=== PATIENT | female | born 1955 | race Caucasian/White ===

== ENCOUNTER 2022-04-03 14:34 | Inpatient (IN) | payer OTHER ==
[~2022-04-03] VITALS: Ht 170.2 cm; Wt 58.7 kg
[2022-04-03] MEDS ORDERED: TETANUS-DIPTH-ACEL PERTUSSIS 0.5ML SYR Tdap IM ONE (14:45)
[2022-04-03 15:42] LABS: Basophils # (auto) 0 10 ^3/uL (0-0.2); Basophils % (auto) 0.1 % (0.0-2.0); Eosinophils # (auto) 0 10 ^3/uL (0-0.8); Eosinophils % (auto) 0.1 % (0.0-7.0); Hematocrit 38.1 % (36.0-46.0); Hemoglobin 13.1 g/dL (12.2-16.2); Lymphocytes % (auto) 5.4 % (10.0-50.0); Mean Corpuscular Hemoglobin 32.2 pg (28.0-32.0); Mean Corpuscular Hgb Conc. 34.4 g/dL (32.0-36.0); Mean Corpuscular Volume 93.7 fL (80.0-100.0); Monocytes # (auto) 2.2 10 ^3/uL (0-1.3); Monocytes % (auto) 12.2 % (0.0-12.0); Neutrophils # (auto) 14.8 10 ^3/uL (1.6-8.6); Neutrophils % (auto) 82.2 % (37.0-80.0); Nucleated Red Blood Cells % 0.1 %; Red Blood Cells 4.06 10^6/uL (4.0-5.20); Red Cell Distribution Width 14.1 % (11.8-14.3)
[2022-04-03 15:50] LABS: Albumin 2.9 g/dL (3.4-5.0); Anion Gap 10 (5-15); Blood Urea Nitrogen 20 mg/dL (7-18); Calcium 9.3 mg/dL (8.5-10.1); Carbon Dioxide 25 mmol/L (21-32); Chloride 99 mmol/L (98-107); Glucose 112 mg/dL (74-106); Magnesium 2.2 mg/dL (1.6-2.6); Sodium 134 mmol/L (136-145)
[2022-04-03 15:58] LABS: Alanine Aminotransferase 17 U/L (13-56); Alkaline Phosphatase 115 U/L (45-117); Aspartate Aminotransferase 20 U/L (15-37); BUN/Creatinine Ratio 20.6; Bilirubin, Total 0.3 mg/dL (0.2-1.0); CRP High Sensitivity > 19.0 mg/dL (< 0.3); GFR African American 74 mL/min; GFR Non-African American 61 mL/min; INR 0.9 (0.9-1.15)
[2022-04-03 16:01] LABS: Potassium 2.9 mmol/L (3.5-5.1)
[2022-04-03] MEDS ORDERED: POTASSIUM EFFERVESENT TAB 25 MEQ GT ONE (16:15)
[2022-04-03 20:20] LABS: Urine Bacteria NONE SEEN /hpf (None Seen); Urine Blood Negative /uL (Negative); Urine WBC 22 /hpf (0 - 5)
[2022-04-03] MEDS ORDERED: ONDANSETRON HCL 4 MG/2 ML VIAL IV PRN (21:15)
[2022-04-03] MEDS ORDERED: cefTRIAXone 1GM/50ML D5W 50 ML IV ONE (21:15)
[2022-04-03] MEDS ORDERED: ACETAMINOPHEN 325 MG TAB PO PRN (21:15)
[2022-04-03] MEDS ORDERED: HYDROcodone-ACET 10/325MG TAB PO ONE (21:15)
[2022-04-03] MEDS ORDERED: DOCUSATE SOD 100 MG CAP PO PRN (21:15)
[2022-04-03] MEDS ORDERED: RIZA10TA22 OR (21:20)
[2022-04-03] MEDS ORDERED: SUMA100T15 PO (21:20)
[2022-04-03] MEDS ORDERED: PAR20T PO (21:20)
[2022-04-03] MEDS ORDERED: HYDR-4072 PO (21:20)
[2022-04-03] MEDS ORDERED: PANT40TA2 PO (21:20)
[2022-04-03] MEDS ORDERED: BUPR-160 PO (21:20)
[2022-04-03] MEDS ORDERED: PROP60CA34 PO (21:20)
[2022-04-03] MEDS ORDERED: ATOR40TA52 PO (21:20)
[2022-04-03] MEDS ORDERED: ONDA-144 PO (21:20)
[2022-04-03] MEDS ORDERED: MIRA50TA OR (21:20)
[2022-04-03] MEDS: FAMOTIDINE (10MG/ML) 2ML VL IV SCH (22:36)
[2022-04-03] MEDS: SODIUM CHLORIDE 0.9% 1,000 ML IV SCH (22:36)
[2022-04-03] MEDS ORDERED: NITROGLYCERIN 0.4 MG SL TAB SL PRN (23:00)
[2022-04-03] MEDS ORDERED: MORPHINE SULFATE INJ 2 MG/ml SYRG IV PRN (23:00)
[2022-04-04] MEDS: HYDROcodone-ACET 5/325MG TAB PO PRN ×2 (02:59→20:53)
[2022-04-04 06:50] LABS: Basophils # (auto) 0 10 ^3/uL (0-0.2); Basophils % (auto) 0.1 % (0.0-2.0); Eosinophils # (auto) 0 10 ^3/uL (0-0.8); Eosinophils % (auto) 0.2 % (0.0-7.0); Hemoglobin 11.9 g/dL (12.2-16.2); Lymphocytes # (auto) 1.2 10 ^3/uL (0.4-5.4); Lymphocytes % (auto) 8.8 % (10.0-50.0); Mean Corpuscular Hemoglobin 32.3 pg (28.0-32.0); Mean Corpuscular Hgb Conc. 34.1 g/dL (32.0-36.0); Mean Corpuscular Volume 94.5 fL (80.0-100.0); Monocytes # (auto) 1.9 10 ^3/uL (0-1.3); Monocytes % (auto) 14.7 % (0.0-12.0); Neutrophils % (auto) 76.2 % (37.0-80.0); Red Cell Distribution Width 14.1 % (11.8-14.3); White Blood Cell 13.1 10^3/uL (4.4-10.8)
[2022-04-04 07:28] LABS: Albumin 2.6 g/dL (3.4-5.0); BUN/Creatinine Ratio 19.6; Bilirubin, Total 0.4 mg/dL (0.2-1.0); Calcium 9.5 mg/dL (8.5-10.1); Total Protein 7.4 g/dL (6.4-8.2)
[2022-04-04 07:38] LABS: Potassium 2.8 mmol/L (3.5-5.1)
[2022-04-04] MEDS ORDERED: POTASSIUM CHL 20 Meq TABLET PO ONE (07:45)
[2022-04-04] MEDS ORDERED: POTASSIUM CHL 20MEQ/100ML 200 ML IV ONE (07:45)
[2022-04-04] MEDS: cefTRIAXone 1GM/50ML D5W 50 ML IV SCH (10:34)
[2022-04-04] MEDS: FAMOTIDINE (10MG/ML) 2ML VL IV SCH ×2 (10:34→20:52)
[2022-04-04] MEDS ORDERED: LISINOPRIL 20 MG TAB PO ONE (14:45)
[2022-04-04] MEDS: SODIUM CHLORIDE 0.9% 1,000 ML IV SCH (14:46)
[2022-04-04] MEDS ORDERED: hydrALAZINE HCL 20 MG/ML VL IV PRN (17:15)
[2022-04-04 17:33] VITALS: BP 131/87
[2022-04-04] MEDS: ATORVASTATIN 20 MG TAB PO SCH (20:52)
[2022-04-04] MEDS: METOPROLOL TARTRATE 25 MG TAB PO SCH (20:53)
[2022-04-04 21:58] VITALS: BP 133/87
[2022-04-04] MEDS ORDERED: buPROPion HCL 100 MG TAB PO SCH (22:00)
[2022-04-05 04:58] VITALS: BP 147/82
[2022-04-05] MEDS: SODIUM CHLORIDE 0.9% 1,000 ML IV SCH ×3 (06:12→09:20)
[2022-04-05] MEDS: SUMAtriptan SUCCINATE 25 MG TAB PO PRN (06:22)
[2022-04-05 09:00] VITALS: BP 152/95
[2022-04-05] MEDS: cefTRIAXone 1GM/50ML D5W 50 ML IV SCH (09:16)
[2022-04-05] MEDS: PANTOPRAZOLE 40 MG TAB PO SCH (09:16)
[2022-04-05] MEDS: METOPROLOL TARTRATE 25 MG TAB PO SCH ×2 (09:17→20:35)
[2022-04-05] MEDS: PARoxetine 20 MG TAB PO SCH (09:17)
[2022-04-05] MEDS: LISINOPRIL 20 MG TAB PO SCH (09:18)
[2022-04-05] MEDS: FAMOTIDINE (10MG/ML) 2ML VL IV SCH ×2 (09:19→20:36)
[2022-04-05 12:13] LABS: BUN/Creatinine Ratio 16.2; Calcium 8.9 mg/dL (8.5-10.1); Magnesium 2.3 mg/dL (1.6-2.6)
[2022-04-05 12:50] LABS: Potassium 2.9 mmol/L (3.5-5.1)
[2022-04-05 13:00] VITALS: BP 141/91
[2022-04-05] MEDS: POTASSIUM CHL 20 Meq TABLET PO SCH ×2 (13:19→17:44)
[2022-04-05 16:47] VITALS: BP 152/86
[2022-04-05] MEDS: HYDROcodone-ACET 5/325MG TAB PO PRN (20:34)
[2022-04-05] MEDS: ATORVASTATIN 20 MG TAB PO SCH (20:36)
[2022-04-05 20:50] VITALS: BP 153/97
[2022-04-05] MEDS ORDERED: LORazepam 2MG/ML-1ML VIAL IV PRN (23:15)
[2022-04-06] MEDS: SODIUM CHLORIDE 0.9% 1,000 ML IV SCH ×3 (00:54→21:44)
[2022-04-06 05:01] VITALS: BP 146/73
[2022-04-06] MEDS: METOCLOPRAMIDE HCL 10 MG TAB PO SCH ×3 (05:44→21:45)
[2022-04-06 06:18] LABS: Albumin 2.4 g/dL (3.4-5.0); Calcium 8.8 mg/dL (8.5-10.1)
[2022-04-06 06:19] LABS: BUN/Creatinine Ratio 14.9
[2022-04-06 06:22] LABS: Bilirubin, Total 0.4 mg/dL (0.2-1.0); Total Protein 6.7 g/dL (6.4-8.2)
[2022-04-06 08:10] LABS: Folate (Folic Acid) 4.72 ng/mL (5.38-24)
[2022-04-06 08:30] VITALS: BP 153/85
[2022-04-06] MEDS: PARoxetine 20 MG TAB PO SCH (09:33)
[2022-04-06] MEDS: PANTOPRAZOLE 40 MG TAB PO SCH (09:33)
[2022-04-06] MEDS: LISINOPRIL 20 MG TAB PO SCH (09:34)
[2022-04-06] MEDS: cefTRIAXone 1GM/50ML D5W 50 ML IV SCH (09:35)
[2022-04-06] MEDS: FAMOTIDINE (10MG/ML) 2ML VL IV SCH ×2 (09:35→21:44)
[2022-04-06] MEDS: METOPROLOL TARTRATE 25 MG TAB PO SCH ×2 (09:35→21:45)
[2022-04-06] MEDS: DexAMETHasone INJECTION 10 MG in D5W 5% 50 ML IV SCH (10:36)
[2022-04-06 12:30] VITALS: BP 148/90
[2022-04-06] MEDS ORDERED: LOPERAMIDE HCL 2 MG CAP/TAB PO PRN (15:15)
[2022-04-06 17:00] VITALS: BP 154/95
[2022-04-06] MEDS: buPROPion HCL 75 MG TAB PO SCH ×2 (18:26→21:44)
[2022-04-06] MEDS: SUMAtriptan SUCCINATE 25 MG TAB PO PRN (19:59)
[2022-04-06] MEDS: ATORVASTATIN 20 MG TAB PO SCH (21:45)
[2022-04-06 22:00] VITALS: BP 156/97
[2022-04-07 05:00] VITALS: BP_SYST 156; BP_DIAS 89; BP_DIAS 90
[2022-04-07] MEDS: METOCLOPRAMIDE HCL 10 MG TAB PO SCH ×3 (05:32→21:12)
[2022-04-07 09:15] VITALS: BP 148/90
[2022-04-07] MEDS: FAMOTIDINE (10MG/ML) 2ML VL IV SCH ×2 (09:29→21:13)
[2022-04-07] MEDS: PARoxetine 20 MG TAB PO SCH (09:29)
[2022-04-07] MEDS: PANTOPRAZOLE 40 MG TAB PO SCH (09:29)
[2022-04-07] MEDS: DexAMETHasone INJECTION 10 MG in D5W 5% 50 ML IV SCH (09:29)
[2022-04-07] MEDS: METOPROLOL TARTRATE 25 MG TAB PO SCH ×2 (09:30→21:12)
[2022-04-07] MEDS: buPROPion HCL 75 MG TAB PO SCH ×2 (09:30→21:13)
[2022-04-07] MEDS: LISINOPRIL 20 MG TAB PO SCH (09:30)
[2022-04-07] MEDS: cefTRIAXone 1GM/50ML D5W 50 ML IV SCH (10:18)
[2022-04-07] MEDS: SODIUM CHLORIDE 0.9% 1,000 ML IV SCH ×3 (10:18→22:30)
[2022-04-07] MEDS: HYDROcodone-ACET 5/325MG TAB PO PRN ×2 (12:18→17:13)
[2022-04-07 12:43] VITALS: BP 144/88
[2022-04-07 16:37] VITALS: BP 144/87
[2022-04-07] MEDS: SUMAtriptan SUCCINATE 25 MG TAB PO PRN (21:11)
[2022-04-07] MEDS: ATORVASTATIN 20 MG TAB PO SCH (21:12)
[2022-04-07] MEDS: AMITRIPTYLINE HCL 25 MG TAB PO SCH (21:12)
[2022-04-07 22:24] VITALS: BP 137/79
[2022-04-08 05:00] VITALS: BP 148/80
[2022-04-08] MEDS: METOCLOPRAMIDE HCL 10 MG TAB PO SCH ×3 (05:23→21:21)
[2022-04-08 08:35] VITALS: BP 144/79
[2022-04-08] MEDS ORDERED: MET25T PO (09:11)
[2022-04-08] MEDS ORDERED: METO-517 PO (09:11)
[2022-04-08] MEDS ORDERED: CEPH-322 PO (09:11)
[2022-04-08] MEDS ORDERED: BUPR75TA10 PO (09:11)
[2022-04-08] MEDS ORDERED: AMIT1TAB35 PO (09:11)
[2022-04-08] MEDS: METOPROLOL TARTRATE 25 MG TAB PO SCH ×2 (09:14→21:22)
[2022-04-08] MEDS: PARoxetine 20 MG TAB PO SCH (09:14)
[2022-04-08] MEDS: PANTOPRAZOLE 40 MG TAB PO SCH (09:14)
[2022-04-08] MEDS: buPROPion HCL 75 MG TAB PO SCH ×2 (09:14→21:20)
[2022-04-08] MEDS: LISINOPRIL 20 MG TAB PO SCH (09:15)
[2022-04-08] MEDS: FAMOTIDINE (10MG/ML) 2ML VL IV SCH ×2 (09:15→21:19)
[2022-04-08] MEDS: FOLIC ACID 1 MG in D5W 5% 50 ML INJ SCH (09:17)
[2022-04-08] MEDS ORDERED: FOLI1TAB6 PO (09:17)
[2022-04-08] MEDS: DexAMETHasone INJECTION 10 MG in D5W 5% 50 ML IV SCH (10:27)
[2022-04-08] MEDS: cefTRIAXone 1GM/50ML D5W 50 ML IV SCH (10:58)
[2022-04-08] MEDS: SODIUM CHLORIDE 0.9% 1,000 ML IV SCH ×2 (11:15→21:34)
[2022-04-08] MEDS: HYDROcodone-ACET 5/325MG TAB PO PRN ×3 (12:08→22:40)
[2022-04-08 12:39] VITALS: BP 144/89
[2022-04-08 17:13] VITALS: BP 137/76
[2022-04-08] MEDS: ATORVASTATIN 20 MG TAB PO SCH (21:21)
[2022-04-08] MEDS: AMITRIPTYLINE HCL 25 MG TAB PO SCH (21:22)
[2022-04-08 22:00] VITALS: BP 143/79
[2022-04-09 05:00] VITALS: BP 147/79
[2022-04-09] MEDS: METOCLOPRAMIDE HCL 10 MG TAB PO SCH ×2 (06:15→13:21)
[2022-04-09] MEDS: SODIUM CHLORIDE 0.9% 1,000 ML IV SCH (07:15)
[2022-04-09 08:37] VITALS: BP 150/95
[2022-04-09] MEDS: FOLIC ACID 1 MG in D5W 5% 50 ML INJ SCH (10:00)
[2022-04-09] MEDS: buPROPion HCL 75 MG TAB PO SCH (10:19)
[2022-04-09] MEDS: PANTOPRAZOLE 40 MG TAB PO SCH (10:19)
[2022-04-09] MEDS: cefTRIAXone 1GM/50ML D5W 50 ML IV SCH (10:19)
[2022-04-09] MEDS: METOPROLOL TARTRATE 25 MG TAB PO SCH (10:20)
[2022-04-09] MEDS: PARoxetine 20 MG TAB PO SCH (10:20)
[2022-04-09] MEDS: LISINOPRIL 20 MG TAB PO SCH (10:21)
[2022-04-09] MEDS: FAMOTIDINE (10MG/ML) 2ML VL IV SCH (10:23)
[2022-04-09] MEDS: DexAMETHasone INJECTION 10 MG in D5W 5% 50 ML IV SCH (11:12)
[2022-04-09 13:09] VITALS: BP 160/91
== END 2022-04-09 16:54 | disposition home health service (06) | DRG 689 ==
LOC: ER 14:36 → TELE 22:48 → TELE-E-ADS 04-04 12:38 → TELE-EAST 04-04 18:23
PROVIDERS: ADMIT Nurse Practitioner Family; ATTEND Nurse Practitioner
DX: N30.00 Acute cystitis without hematuria (principal); G93.41 Metabolic encephalopathy; E87.1 Hypo-osmolality and hyponatremia; E44.0 Moderate protein-calorie malnutrition; E87.6 Hypokalemia; E88.09 Other disorders of plasma-protein metabolism, not elsewhere classified; F29 Unspecified psychosis not due to a substance or known physiological condition; F17.200 Nicotine dependence, unspecified, uncomplicated; I10 Essential (primary) hypertension; Z20.822 Contact with and (suspected) exposure to COVID-19; G43.909 Migraine, unspecified, not intractable, without status migrainosus; G44.40 Drug-induced headache, not elsewhere classified, not intractable; E53.8 Deficiency of other specified B group vitamins; Z68.20 Body mass index [BMI] 20.0-20.9, adult; Z82.0 Family history of epilepsy and other diseases of the nervous system; Z79.899 Other long term (current) drug therapy; Z83.3 Family history of diabetes mellitus; Z82.49 Family history of ischemic heart disease and other diseases of the circulatory system; Z86.19 Personal history of other infectious and parasitic diseases
CPT/HCPCS: 36415; 70450; 70551; 71045; 80048; 80053; 81001; 82607; 82746; 83735; 84443; 84484; 85025; 85610; 86141; 87086; 87426; 93005; 95819; 96365; 96366; 96367; G0378; J0696; J1100; J3480; J3490; J7060

== ENCOUNTER → 2022-06-24 | Outpatient (CLI) | payer OTHER ==
[~2022-06-24] MED LIST: AMIT1TAB35 PO; ATOR40TA52 PO; BUPR75TA10 PO; CEPH-322 PO; FOLI1TAB6 PO; HYDR-4072 PO; MET25T PO; METO-517 PO; MIRA50TA OR; ONDA-144 PO; PANT40TA2 PO; PAR20T PO; PROP60CA34 PO; RIZA10TA22 OR; SUMA100T15 PO
[2022-06-24 08:59] LABS: Urine Bacteria NONE SEEN /hpf (None Seen); Urine Blood Negative /uL (Negative); Urine Specific Gravity 1.021 (1.001-1.035); Urine WBC <1 /hpf (0 - 5)
[2022-06-24 09:11] LABS: Basophils # (auto) 0.1 10 ^3/uL (0-0.2); Basophils % (auto) 0.8 % (0.0-2.0); Eosinophils # (auto) 0.4 10 ^3/uL (0-0.8); Eosinophils % (auto) 5.2 % (0.0-7.0); Hematocrit 41.3 % (36.0-46.0); Hemoglobin 13.8 g/dL (12.2-16.2); Lymphocytes # (auto) 2.8 10 ^3/uL (0.4-5.4); Lymphocytes % (auto) 40.9 % (10.0-50.0); Mean Corpuscular Hemoglobin 31.4 pg (28.0-32.0); Mean Corpuscular Hgb Conc. 33.4 g/dL (32.0-36.0); Mean Corpuscular Volume 93.8 fL (80.0-100.0); Monocytes # (auto) 0.5 10 ^3/uL (0-1.3); Monocytes % (auto) 7.9 % (0.0-12.0); Neutrophils # (auto) 3.1 10 ^3/uL (1.6-8.6); Neutrophils % (auto) 45.2 % (37.0-80.0); Nucleated Red Blood Cells % 0.1 %; Red Cell Distribution Width 13.1 % (11.8-14.3); White Blood Cell 6.9 10^3/uL (4.4-10.8)
[2022-06-24 09:33] LABS: Calcium 9.8 mg/dL (8.5-10.1); Magnesium 2.1 mg/dL (1.6-2.6); Potassium 4.7 mmol/L (3.5-5.1); Uric Acid 3.3 mg/dL (2.6-6.0)
[2022-06-24 09:40] LABS: Albumin 3.9 g/dL (3.4-5.0); BUN/Creatinine Ratio 21.5 (10.0-20.0); Bilirubin, Total 0.2 mg/dL (0.2-1.0); Total Protein 7.8 g/dL (6.4-8.2)
== END | disposition home or self-care (01) ==
LOC: LAB 08:20
PROVIDERS: ATTEND Internal Medicine
DX: R79.89 Other specified abnormal findings of blood chemistry (principal); E78.41 Elevated Lipoprotein(a); R68.89 Other general symptoms and signs; R73.09 Other abnormal glucose; E61.2 Magnesium deficiency; R94.6 Abnormal results of thyroid function studies; R82.991 Hypocitraturia; E55.9 Vitamin D deficiency, unspecified; R82.79 Other abnormal findings on microbiological examination of urine; D51.9 Vitamin B12 deficiency anemia, unspecified; R82.90 Unspecified abnormal findings in urine
CPT/HCPCS: 36415; 80053; 80061; 81001; 82306; 82607; 83036; 83735; 84443; 84550; 85025; 87086

== ENCOUNTER 2022-10-11 09:05 | Inpatient (IN) | payer OTHER ==
[~2022-10-11] VITALS: Ht 170.2 cm; Wt 65.3 kg
[~2022-10-11 09:05] MED LIST changes: +AMIT-118 PO; -AMIT1TAB35 PO; -BUPR75TA10 PO; +BUPR75TA96 PO; -CEPH-322 PO; +CEPH250C PO; +FOLI-119 PO; -FOLI1TAB6 PO
[2022-10-11 09:42] LABS: Basophils # (auto) 0.1 10 ^3/uL (0-0.2); Basophils % (auto) 0.8 % (0.0-2.0); Eosinophils # (auto) 0.2 10 ^3/uL (0-0.8); Eosinophils % (auto) 1.4 % (0.0-7.0); Hematocrit 39.8 % (36.0-46.0); Hemoglobin 13.4 g/dL (12.2-16.2); Lymphocytes # (auto) 2.1 10 ^3/uL (0.4-5.4); Lymphocytes % (auto) 14.8 % (10.0-50.0); Mean Corpuscular Hemoglobin 31.9 pg (28.0-32.0); Mean Corpuscular Hgb Conc. 33.7 g/dL (32.0-36.0); Mean Corpuscular Volume 94.7 fL (80.0-100.0); Monocytes # (auto) 1.4 10 ^3/uL (0-1.3); Monocytes % (auto) 9.9 % (0.0-12.0); Neutrophils # (auto) 10.4 10 ^3/uL (1.6-8.6); Neutrophils % (auto) 73.1 % (37.0-80.0); Red Blood Cells 4.21 10^6/uL (4.0-5.20); Red Cell Distribution Width 13.7 % (11.8-14.3); White Blood Cell 14.3 10^3/uL (4.4-10.8)
[2022-10-11 11:07] LABS: Albumin 3.4 g/dL (3.4-5.0); BUN/Creatinine Ratio 15.4 (10.0-20.0); Calcium 9.7 mg/dL (8.5-10.1)
[2022-10-11 11:17] LABS: Bilirubin, Total 0.4 mg/dL (0.2-1.0); Total Protein 7.9 g/dL (6.4-8.2)
[2022-10-11] MEDS ORDERED: SODIUM CHLORIDE 0.9% 1,000 ML IV ONE (12:15)
[2022-10-11 12:35] LABS: Urine Bacteria NONE SEEN /hpf (None Seen); Urine Blood Negative /uL (Negative); Urine Clarity Clear (Clear); Urine Color Yellow (Yellow); Urine Hyaline Cast MANY /lpf (0 - 2); Urine Mucus FEW (None Seen); Urine Protein, UAD 1+ (Negative); Urine Specific Gravity 1.035 (1.001-1.035); Urine Urobilinogen Normal (Negative); Urine WBC 1 /hpf (0 - 5)
[2022-10-11 12:51] LABS: Magnesium 2.4 mg/dL (1.6-2.6)
[2022-10-11 13:38] LABS: INR 0.93 (0.9-1.15); Partial Thromboplastin Time 29.6 SEC (24.5-34.5); Prothrombin Time 9.8 sec (9.3-11.8)
[2022-10-11] MEDS ORDERED: IOHEXOL 300 MG/ML 100ML BOTTLE IJ ONE (14:23)
[2022-10-11] MEDS ORDERED: FLEET ENEMA(ADULT) 135 ML PR ONE (17:30)
[2022-10-11] MEDS ORDERED: SENNA 8.6 MG TAB PO ONE (17:30)
[2022-10-11] MEDS ORDERED: FLEET ENEMA(ADULT) 135 ML PR PRN (18:15)
[2022-10-11] MEDS ORDERED: DOCUSATE SOD 100 MG CAP PO ONE (18:15)
[2022-10-11] MEDS ORDERED: BISACODYL 5 MG EC TAB PO PRN (18:15)
[2022-10-11] MEDS ORDERED: ONDANSETRON HCL 4 MG/2 ML VIAL IV PRN (18:15)
[2022-10-11] MEDS ORDERED: HYDROcodone-ACET 5/325MG TAB PO PRN (18:15)
[2022-10-11] MEDS ORDERED: DOCUSATE SOD 100 MG CAP PO PRN ×2 (18:15)
[2022-10-11 19:23] VITALS: PULSE 78; RESP 18; O2SAT 94
[2022-10-11] MEDS ORDERED: MORPHINE SULFATE INJ 2 MG/ml SYRG IV ONE (19:45)
[2022-10-11] MEDS ORDERED: hydrALAZINE HCL 20 MG/ML VL IV PRN (19:45)
[2022-10-11] MEDS: cefTRIAXone 1GM/50ML D5W 50 ML IV SCH (19:50)
[2022-10-11] MEDS: POLYETHYLENE GLYCOL 17 GM PWDR PO SCH (19:51)
[2022-10-11] MEDS: metroNIDAZOLE 500MG/100ML 100 ML IV SCH (19:57)
[2022-10-11] MEDS: buPROPion HCL 75 MG TAB PO SCH (20:47)
[2022-10-11] MEDS: METOCLOPRAMIDE HCL 10 MG TAB PO SCH (20:47)
[2022-10-11] MEDS: AMITRIPTYLINE HCL 25 MG TAB PO SCH (20:47)
[2022-10-11] MEDS: SODIUM CHLOR 0.9% PF (SALINE LOCK) 10ML VIAL/SYR IV SCH (21:00)
[2022-10-11] MEDS: PROPRANOLOL HCL 20 MG TAB PO SCH (22:19)
[2022-10-11 23:30] VITALS: PULSE 103; RESP 18; O2SAT 99
[2022-10-12] MEDS: metroNIDAZOLE 500MG/100ML 100 ML IV SCH ×2 (03:14→10:22)
[2022-10-12] MEDS: SODIUM CHLOR 0.9% PF (SALINE LOCK) 10ML VIAL/SYR IV SCH ×3 (05:51→21:29)
[2022-10-12] MEDS: METOCLOPRAMIDE HCL 10 MG TAB PO SCH ×2 (05:51→13:24)
[2022-10-12 07:25] VITALS: PULSE 98; RESP 15; O2SAT 98
[2022-10-12] MEDS: cefTRIAXone 1GM/50ML D5W 50 ML IV SCH (09:20)
[2022-10-12] MEDS: FOLIC ACID 1 MG TAB PO SCH (09:47)
[2022-10-12] MEDS: PROPRANOLOL HCL 20 MG TAB PO SCH ×2 (09:48→21:28)
[2022-10-12] MEDS: PARoxetine 20 MG TAB PO SCH (09:48)
[2022-10-12] MEDS: ATORVASTATIN 20 MG TAB PO SCH (09:48)
[2022-10-12] MEDS: POLYETHYLENE GLYCOL 17 GM PWDR PO SCH (09:48)
[2022-10-12] MEDS: PANTOPRAZOLE 40 MG TAB PO SCH (09:49)
[2022-10-12] MEDS: buPROPion HCL 75 MG TAB PO SCH ×2 (09:49→21:29)
[2022-10-12] MEDS ORDERED: ENOXAPARIN SOD 40 MG/0.4 ML SYRINGE SC SCH (10:00)
[2022-10-12] MEDS ORDERED: PARoxetine 20 MG TAB PO SCH (10:00)
[2022-10-12] MEDS ORDERED: CHOL20007 PO (12:55)
[2022-10-12] MEDS ORDERED: OXYB2.5T PO (12:55)
[2022-10-12 13:00] VITALS: BP 136/79; PULSE 81; RESP 18; TEMP 98; O2SAT 97
[2022-10-12 17:00] VITALS: BP 133/85; PULSE 87; RESP 19; TEMP 98.2; O2SAT 98
[2022-10-12] MEDS: LACTULOSE 20Gm/30ML SOLN PO SCH ×2 (18:15→22:00)
[2022-10-12] MEDS: DOCUSATE SOD 100 MG CAP PO SCH (21:29)
[2022-10-12] MEDS: AMITRIPTYLINE HCL 25 MG TAB PO SCH (21:29)
[2022-10-12 22:00] VITALS: BP 169/94; PULSE 90; RESP 14; TEMP 98.1; O2SAT 92
[2022-10-13] MEDS: LACTULOSE 20Gm/30ML SOLN PO SCH ×6 (02:00→21:19)
[2022-10-13 05:00] VITALS: BP 174/96; PULSE 85; RESP 14; TEMP 98.3; O2SAT 93
[2022-10-13] MEDS: SODIUM CHLOR 0.9% PF (SALINE LOCK) 10ML VIAL/SYR IV SCH ×3 (05:42→21:17)
[2022-10-13 06:34] LABS: Basophils # (auto) 0 10 ^3/uL (0-0.2); Basophils % (auto) 0.1 % (0.0-2.0); Eosinophils # (auto) 0.1 10 ^3/uL (0-0.8); Eosinophils % (auto) 0.4 % (0.0-7.0); Hematocrit 36.3 % (36.0-46.0); Hemoglobin 12.2 g/dL (12.2-16.2); Lymphocytes # (auto) 1.5 10 ^3/uL (0.4-5.4); Lymphocytes % (auto) 10.2 % (10.0-50.0); Mean Corpuscular Hemoglobin 31.7 pg (28.0-32.0); Mean Corpuscular Hgb Conc. 33.6 g/dL (32.0-36.0); Mean Corpuscular Volume 94.4 fL (80.0-100.0); Monocytes % (auto) 13.8 % (0.0-12.0); Neutrophils # (auto) 11.2 10 ^3/uL (1.6-8.6); Neutrophils % (auto) 75.5 % (37.0-80.0); Nucleated Red Blood Cells % 0.1 %; Red Blood Cells 3.84 10^6/uL (4.0-5.20); Red Cell Distribution Width 13.5 % (11.8-14.3); White Blood Cell 14.8 10^3/uL (4.4-10.8)
[2022-10-13] MEDS ORDERED: FLEET ENEMA(ADULT) 135 ML PR ONE (08:00)
[2022-10-13 09:00] VITALS: BP 142/91; PULSE 95; RESP 18; TEMP 97.8; O2SAT 94
[2022-10-13 09:04] LABS: Potassium 3.8 mmol/L (3.5-5.1)
[2022-10-13 09:36] LABS: Albumin 2.9 g/dL (3.4-5.0); BUN/Creatinine Ratio 20.3 (10.0-20.0); Bilirubin, Total 0.3 mg/dL (0.2-1.0); Calcium 8.7 mg/dL (8.7-10.4); Magnesium 2.3 mg/dL (1.6-2.6); Total Protein 6.1 g/dL (6.4-8.2)
[2022-10-13] MEDS: DOCUSATE SOD 100 MG CAP PO SCH ×2 (09:43→21:17)
[2022-10-13] MEDS: PARoxetine 20 MG TAB PO SCH (09:43)
[2022-10-13] MEDS: ATORVASTATIN 20 MG TAB PO SCH (09:43)
[2022-10-13] MEDS: PROPRANOLOL HCL 20 MG TAB PO SCH ×2 (09:44→21:17)
[2022-10-13] MEDS: FOLIC ACID 1 MG TAB PO SCH (09:44)
[2022-10-13] MEDS: PANTOPRAZOLE 40 MG TAB PO SCH (09:45)
[2022-10-13] MEDS: POLYETHYLENE GLYCOL 17 GM PWDR PO SCH (09:45)
[2022-10-13] MEDS: LISINOPRIL 10 MG TAB PO SCH (09:54)
[2022-10-13] MEDS ORDERED: LISINOPRIL 10 MG TAB PO SCH (10:00)
[2022-10-13] MEDS ORDERED: MILK OF MAGNESIA 30ML SUSP PO ONE (10:45)
[2022-10-13 13:00] VITALS: BP 121/75; PULSE 75; RESP 18; TEMP 98; O2SAT 93
[2022-10-13 17:00] VITALS: BP 153/72; PULSE 83; RESP 18; TEMP 98.4; O2SAT 94
[2022-10-13] MEDS: buPROPion HCL 75 MG TAB PO SCH ×2 (17:11→21:13)
[2022-10-13] MEDS: HYDROcodone-ACET 5/325MG TAB PO PRN (21:13)
[2022-10-13] MEDS: AMITRIPTYLINE HCL 25 MG TAB PO SCH (21:17)
[2022-10-13 22:00] VITALS: BP 154/86; PULSE 91; RESP 14; TEMP 98.3; O2SAT 93
[2022-10-14] MEDS: LACTULOSE 20Gm/30ML SOLN PO SCH ×3 (02:00→09:22)
[2022-10-14 05:00] VITALS: BP 133/72; PULSE 89; RESP 14; TEMP 98.3; O2SAT 93
[2022-10-14] MEDS: SODIUM CHLOR 0.9% PF (SALINE LOCK) 10ML VIAL/SYR IV SCH ×3 (05:36→21:48)
[2022-10-14 06:05] LABS: Basophils # (auto) 0 10 ^3/uL (0-0.2); Basophils % (auto) 0.2 % (0.0-2.0); Eosinophils # (auto) 0.1 10 ^3/uL (0-0.8); Eosinophils % (auto) 0.5 % (0.0-7.0); Hematocrit 34.3 % (36.0-46.0); Hemoglobin 11.4 g/dL (12.2-16.2); Lymphocytes # (auto) 1.5 10 ^3/uL (0.4-5.4); Lymphocytes % (auto) 10.4 % (10.0-50.0); Mean Corpuscular Hemoglobin 31.3 pg (28.0-32.0); Mean Corpuscular Hgb Conc. 33.2 g/dL (32.0-36.0); Mean Corpuscular Volume 94.2 fL (80.0-100.0); Monocytes # (auto) 2.2 10 ^3/uL (0-1.3); Monocytes % (auto) 15.2 % (0.0-12.0); Neutrophils # (auto) 10.8 10 ^3/uL (1.6-8.6); Neutrophils % (auto) 73.7 % (37.0-80.0); Nucleated Red Blood Cells % 0.1 %; Red Blood Cells 3.64 10^6/uL (4.0-5.20); Red Cell Distribution Width 13.3 % (11.8-14.3); White Blood Cell 14.7 10^3/uL (4.4-10.8)
[2022-10-14 06:19] LABS: Calcium 8.9 mg/dL (8.7-10.4); Chloride 101 mmol/L (98-107); Potassium 3.5 mmol/L (3.5-5.1); Sodium 137 mmol/L (136-145)
[2022-10-14 06:20] LABS: Anion Gap 10.4 (5-15); Carbon Dioxide 25.6 mmol/L (20-30)
[2022-10-14 06:25] LABS: BUN/Creatinine Ratio 15.2 (10.0-20.0); Blood Urea Nitrogen 10 mg/dL (9-23); Glucose 116 mg/dL (74-106)
[2022-10-14] MEDS ORDERED: POTASSIUM CHL 20 Meq TABLET PO ONE (08:00)
[2022-10-14 08:40] VITALS: BP 114/76; PULSE 93; RESP 17; TEMP 98.5; O2SAT 94
[2022-10-14] MEDS: DOCUSATE SOD 100 MG CAP PO SCH ×2 (09:23→21:48)
[2022-10-14] MEDS: PARoxetine 20 MG TAB PO SCH (09:24)
[2022-10-14] MEDS: PANTOPRAZOLE 40 MG TAB PO SCH (09:24)
[2022-10-14] MEDS: FOLIC ACID 1 MG TAB PO SCH (09:25)
[2022-10-14] MEDS: ATORVASTATIN 20 MG TAB PO SCH (09:25)
[2022-10-14] MEDS: PROPRANOLOL HCL 20 MG TAB PO SCH ×2 (09:26→21:48)
[2022-10-14] MEDS: POLYETHYLENE GLYCOL 17 GM PWDR PO SCH (09:27)
[2022-10-14] MEDS: LISINOPRIL 10 MG TAB PO SCH (09:27)
[2022-10-14] MEDS: ACETAMINOPHEN 325 MG TAB PO PRN (09:40)
[2022-10-14] MEDS: buPROPion HCL 75 MG TAB PO SCH ×2 (09:41→21:48)
[2022-10-14] MEDS ORDERED: cefTRIAXone 1GM/50ML D5W 50 ML IV ONE (11:15)
[2022-10-14 12:40] VITALS: BP 120/55; PULSE 89; RESP 18; TEMP 97.3; O2SAT 94
[2022-10-14] MEDS: metroNIDAZOLE 500MG/100ML 100 ML IV SCH ×2 (16:26→21:48)
[2022-10-14 17:00] VITALS: BP 112/59; PULSE 85; RESP 19; TEMP 98.4; O2SAT 95
[2022-10-14] MEDS: AMITRIPTYLINE HCL 25 MG TAB PO SCH (21:48)
[2022-10-14 22:00] VITALS: BP 130/70; PULSE 95; RESP 17; TEMP 98.2; O2SAT 96
[2022-10-15 05:00] VITALS: BP 112/66; PULSE 88; RESP 17; TEMP 98.2; O2SAT 94
[2022-10-15] MEDS: metroNIDAZOLE 500MG/100ML 100 ML IV SCH ×3 (05:43→23:05)
[2022-10-15] MEDS: SODIUM CHLOR 0.9% PF (SALINE LOCK) 10ML VIAL/SYR IV SCH ×3 (05:45→23:06)
[2022-10-15 06:07] LABS: Basophils # (auto) 0 10 ^3/uL (0-0.2); Basophils % (auto) 0.2 % (0.0-2.0); Eosinophils # (auto) 0.1 10 ^3/uL (0-0.8); Eosinophils % (auto) 0.6 % (0.0-7.0); Hematocrit 32.8 % (36.0-46.0); Lymphocytes # (auto) 1.9 10 ^3/uL (0.4-5.4); Lymphocytes % (auto) 10.4 % (10.0-50.0); Mean Corpuscular Hemoglobin 31.4 pg (28.0-32.0); Mean Corpuscular Hgb Conc. 33.5 g/dL (32.0-36.0); Mean Corpuscular Volume 93.8 fL (80.0-100.0); Monocytes # (auto) 2.9 10 ^3/uL (0-1.3); Monocytes % (auto) 15.9 % (0.0-12.0); Neutrophils # (auto) 13.2 10 ^3/uL (1.6-8.6); Neutrophils % (auto) 72.9 % (37.0-80.0); Red Cell Distribution Width 13.1 % (11.8-14.3); White Blood Cell 18.1 10^3/uL (4.4-10.8)
[2022-10-15 06:27] LABS: Alanine Aminotransferase 13 U/L (7-40); Albumin 3.5 g/dL (3.2-4.8); Alkaline Phosphatase 91 U/L (46-116); Anion Gap 9.2 (5-15); Aspartate Aminotransferase 12 U/L (13-40); BUN/Creatinine Ratio 14.5 (10.0-20.0); Bilirubin, Total 0.2 mg/dL (0.2-1.0); Blood Urea Nitrogen 8 mg/dL (9-23); Calcium 8.5 mg/dL (8.5-10.1); Carbon Dioxide 23.8 mmol/L (20-30); Chloride 102 mmol/L (98-107); Glucose 108 mg/dL (74-106); Magnesium 1.8 mg/dL (1.6-2.6); Potassium 3.7 mmol/L (3.5-5.1); Sodium 135 mmol/L (136-145); Total Protein 5.6 g/dL (5.7-8.2)
[2022-10-15 08:00] VITALS: RESP 18
[2022-10-15 08:40] VITALS: BP 113/65; PULSE 80; RESP 17; TEMP 98; O2SAT 96
[2022-10-15] MEDS: cefTRIAXone 1GM/50ML D5W 50 ML IV SCH (09:24)
[2022-10-15 09:41] LABS: Hepatitis B Surface Antigen Negative (Negative)
[2022-10-15 10:03] LABS: Hepatitis C Antibody Negative (Negative)
[2022-10-15] MEDS: ATORVASTATIN 20 MG TAB PO SCH (10:42)
[2022-10-15] MEDS: DOCUSATE SOD 100 MG CAP PO SCH ×2 (10:42→23:06)
[2022-10-15] MEDS: FOLIC ACID 1 MG TAB PO SCH (10:42)
[2022-10-15] MEDS: PARoxetine 20 MG TAB PO SCH (10:42)
[2022-10-15] MEDS: PANTOPRAZOLE 40 MG TAB PO SCH (10:42)
[2022-10-15] MEDS: buPROPion HCL 75 MG TAB PO SCH ×2 (10:42→23:07)
[2022-10-15] MEDS: POLYETHYLENE GLYCOL 17 GM PWDR PO SCH (10:52)
[2022-10-15] MEDS: HYDROcodone-ACET 5/325MG TAB PO PRN (10:53)
[2022-10-15 13:00] VITALS: BP 148/83; PULSE 85; RESP 17; TEMP 97.6; O2SAT 98
[2022-10-15] MEDS: PROPRANOLOL HCL 20 MG TAB PO SCH ×2 (13:55→23:07)
[2022-10-15] MEDS ORDERED: FLEET MINERAL OIL ENEMA 133 ML PR ONE (15:00)
[2022-10-15 17:00] VITALS: BP 131/81; PULSE 87; RESP 18; TEMP 98.3; O2SAT 95
[2022-10-15 22:00] VITALS: BP 120/76; PULSE 88; RESP 18; TEMP 99.7; O2SAT 94
[2022-10-15] MEDS: AMITRIPTYLINE HCL 25 MG TAB PO SCH (23:06)
[2022-10-16 05:00] VITALS: BP 145/81; PULSE 89; RESP 19; TEMP 98.5; O2SAT 93
[2022-10-16] MEDS: SODIUM CHLOR 0.9% PF (SALINE LOCK) 10ML VIAL/SYR IV SCH ×3 (05:41→23:06)
[2022-10-16] MEDS: metroNIDAZOLE 500MG/100ML 100 ML IV SCH ×3 (05:41→23:05)
[2022-10-16 06:36] LABS: Basophils # (auto) 0 10 ^3/uL (0-0.2); Basophils % (auto) 0.2 % (0.0-2.0); Eosinophils # (auto) 0.1 10 ^3/uL (0-0.8); Eosinophils % (auto) 0.6 % (0.0-7.0); Hematocrit 32.5 % (36.0-46.0); Hemoglobin 10.8 g/dL (12.2-16.2); Lymphocytes # (auto) 1.4 10 ^3/uL (0.4-5.4); Lymphocytes % (auto) 8.2 % (10.0-50.0); Mean Corpuscular Hemoglobin 31.2 pg (28.0-32.0); Mean Corpuscular Hgb Conc. 33.3 g/dL (32.0-36.0); Mean Corpuscular Volume 93.5 fL (80.0-100.0); Monocytes # (auto) 2.4 10 ^3/uL (0-1.3); Monocytes % (auto) 14.1 % (0.0-12.0); Neutrophils # (auto) 13.3 10 ^3/uL (1.6-8.6); Neutrophils % (auto) 76.9 % (37.0-80.0); Red Blood Cells 3.48 10^6/uL (4.0-5.20); Red Cell Distribution Width 13.4 % (11.8-14.3); White Blood Cell 17.3 10^3/uL (4.4-10.8)
[2022-10-16 06:39] LABS: Calcium 8.3 mg/dL (8.5-10.1); Chloride 103 mmol/L (98-107); Potassium 3.4 mmol/L (3.5-5.1); Sodium 136 mmol/L (136-145)
[2022-10-16 06:40] LABS: Anion Gap 10.4 (5-15); Carbon Dioxide 22.6 mmol/L (20-30)
[2022-10-16 06:45] LABS: BUN/Creatinine Ratio 13.5 (10.0-20.0); Blood Urea Nitrogen 7 mg/dL (9-23); Glucose 89 mg/dL (74-106)
[2022-10-16 08:00] VITALS: RESP 19
[2022-10-16 09:00] VITALS: BP 155/76; PULSE 92; RESP 16; TEMP 99.1; O2SAT 95
[2022-10-16] MEDS: cefTRIAXone 1GM/50ML D5W 50 ML IV SCH (09:04)
[2022-10-16] MEDS: POLYETHYLENE GLYCOL 17 GM PWDR PO SCH (09:51)
[2022-10-16] MEDS: ATORVASTATIN 20 MG TAB PO SCH (09:52)
[2022-10-16] MEDS: PANTOPRAZOLE 40 MG TAB PO SCH (09:52)
[2022-10-16] MEDS: DOCUSATE SOD 100 MG CAP PO SCH ×2 (09:53→23:06)
[2022-10-16] MEDS: PARoxetine 20 MG TAB PO SCH (09:53)
[2022-10-16] MEDS: FOLIC ACID 1 MG TAB PO SCH (09:53)
[2022-10-16] MEDS: PROPRANOLOL HCL 20 MG TAB PO SCH ×2 (09:53→23:07)
[2022-10-16] MEDS: ACETAMINOPHEN 325 MG TAB PO PRN (09:56)
[2022-10-16] MEDS: POTASSIUM EFFERVESENT TAB 25 MEQ PO ONE ×2 (09:57→10:00)
[2022-10-16] MEDS: buPROPion HCL 75 MG TAB PO SCH ×2 (09:59→23:06)
[2022-10-16 13:00] VITALS: BP 130/80; PULSE 82; RESP 18; TEMP 97.7; O2SAT 97
[2022-10-16] MEDS ORDERED: POTASSIUM CHL 20 Meq TABLET PO ONE (13:15)
[2022-10-16] MEDS ORDERED: GOLYTELY 4L KIT PO ONE (14:15)
[2022-10-16 17:00] VITALS: BP 127/80; PULSE 79; RESP 18; TEMP 98.1; O2SAT 95
[2022-10-16 22:00] VITALS: BP 141/72; PULSE 90; RESP 18; TEMP 98.4; O2SAT 96
[2022-10-16] MEDS: AMITRIPTYLINE HCL 25 MG TAB PO SCH (23:06)
[2022-10-16] MEDS: HYDROcodone-ACET 5/325MG TAB PO PRN (23:08)
[2022-10-17 05:00] VITALS: BP 130/78; PULSE 91; RESP 17; TEMP 98.2; O2SAT 96
[2022-10-17] MEDS: SODIUM CHLOR 0.9% PF (SALINE LOCK) 10ML VIAL/SYR IV SCH ×2 (06:18→13:29)
[2022-10-17] MEDS: metroNIDAZOLE 500MG/100ML 100 ML IV SCH ×2 (06:18→13:25)
[2022-10-17] MEDS: ACETAMINOPHEN 325 MG TAB PO PRN (06:33)
[2022-10-17 07:12] LABS: Albumin 3.6 g/dL (3.2-4.8); Alkaline Phosphatase 88 U/L (46-116); Anion Gap 8.7 (5-15); Aspartate Aminotransferase 12 U/L (13-40); Blood Urea Nitrogen 6 mg/dL (9-23); Calcium 8.7 mg/dL (8.7-10.4); Carbon Dioxide 22.3 mmol/L (20-30); Chloride 105 mmol/L (98-107); Glucose 117 mg/dL (74-106); Magnesium 1.6 mg/dL (1.6-2.6); Potassium 3.4 mmol/L (3.5-5.1); Sodium 136 mmol/L (136-145)
[2022-10-17 07:13] LABS: Bilirubin, Total 0.2 mg/dL (0.2-1.0); Total Protein 6.1 g/dL (5.7-8.2)
[2022-10-17 07:39] LABS: Basophils # (auto) 0 10 ^3/uL (0-0.2); Basophils % (auto) 0.2 % (0.0-2.0); Eosinophils # (auto) 0.1 10 ^3/uL (0-0.8); Eosinophils % (auto) 0.9 % (0.0-7.0); Hemoglobin 10.7 g/dL (12.2-16.2); Lymphocytes # (auto) 1.3 10 ^3/uL (0.4-5.4); Lymphocytes % (auto) 9.6 % (10.0-50.0); Mean Corpuscular Hemoglobin 31.2 pg (28.0-32.0); Mean Corpuscular Hgb Conc. 33.6 g/dL (32.0-36.0); Mean Corpuscular Volume 92.9 fL (80.0-100.0); Monocytes # (auto) 1.9 10 ^3/uL (0-1.3); Monocytes % (auto) 14.1 % (0.0-12.0); Neutrophils # (auto) 9.9 10 ^3/uL (1.6-8.6); Neutrophils % (auto) 75.2 % (37.0-80.0); Red Blood Cells 3.44 10^6/uL (4.0-5.20); Red Cell Distribution Width 13.4 % (11.8-14.3); White Blood Cell 13.2 10^3/uL (4.4-10.8)
[2022-10-17 08:03] LABS: Alanine Aminotransferase 9 U/L (7-40)
[2022-10-17] MEDS ORDERED: POTASSIUM CHL 20 Meq TABLET PO ONE (08:45)
[2022-10-17] MEDS: POLYETHYLENE GLYCOL 17 GM PWDR PO SCH (09:45)
[2022-10-17] MEDS: cefTRIAXone 1GM/50ML D5W 50 ML IV SCH (09:46)
[2022-10-17] MEDS: buPROPion HCL 75 MG TAB PO SCH (09:47)
[2022-10-17] MEDS: ATORVASTATIN 20 MG TAB PO SCH (09:47)
[2022-10-17] MEDS: DOCUSATE SOD 100 MG CAP PO SCH (09:48)
[2022-10-17] MEDS: PANTOPRAZOLE 40 MG TAB PO SCH (09:48)
[2022-10-17] MEDS: FOLIC ACID 1 MG TAB PO SCH (09:50)
[2022-10-17] MEDS: PROPRANOLOL HCL 20 MG TAB PO SCH (09:50)
[2022-10-17] MEDS: PARoxetine 20 MG TAB PO SCH (09:50)
[2022-10-17] MEDS: HYDROcodone-ACET 5/325MG TAB PO PRN (10:41)
[2022-10-17 13:00] VITALS: BP_SYST 130; BP_SYST 156; BP_DIAS 71; BP_DIAS 88; PULSE 70; PULSE 86; RESP 14; RESP 16; TEMP 98; TEMP 98.4; O2SAT 95; O2SAT 96
[2022-10-17] MEDS ORDERED: CIPR500T4 PO (14:53)
[2022-10-17] MEDS ORDERED: METR-344 PO (14:53)
== END 2022-10-17 16:00 | disposition home or self-care (01) | DRG 392 ==
LOC: ER 09:05 → OVERFLOW 18:04 → WEST WING 10-12 11:32
PROVIDERS: ADMIT Internal Medicine; ATTEND Student in an Organized Health Care Education/Training Program
DX: K59.03 Drug induced constipation (principal); K52.89 Other specified noninfective gastroenteritis and colitis; K57.30 Diverticulosis of large intestine without perforation or abscess without bleeding; G51.0 Bell's palsy; E78.5 Hyperlipidemia, unspecified; T44.3X5A Adverse effect of other parasympatholytics [anticholinergics and antimuscarinics] and spasmolytics, initial encounter; I12.9 Hypertensive chronic kidney disease with stage 1 through stage 4 chronic kidney disease, or unspecified chronic kidney disease; K37 Unspecified appendicitis; F32.A Depression, unspecified; G43.909 Migraine, unspecified, not intractable, without status migrainosus; N18.30 Chronic kidney disease, stage 3 unspecified; Z82.49 Family history of ischemic heart disease and other diseases of the circulatory system; Z87.11 Personal history of peptic ulcer disease; Z87.442 Personal history of urinary calculi; Z81.8 Family history of other mental and behavioral disorders; Z90.49 Acquired absence of other specified parts of digestive tract; Y92.89 Other specified places as the place of occurrence of the external cause
CPT/HCPCS: 36415; 74018; 74022; 74177; 80048; 80053; 80061; 81001; 83036; 83605; 83690; 83735; 84443; 85025; 85610; 85730; 86803; 87040; 87340; 96361; 96374; 97163; G0378; J0696; J2405; J3490

== ENCOUNTER → 2022-12-16 | Outpatient (CLI) | payer OTHER ==
[~2022-12-16] MED LIST changes: +CHOL20007 PO; +CIPR500T4 PO; +METR-344 PO; -MIRA50TA OR; +OXYB2.5T PO; -RIZA10TA22 OR
[2022-12-16 09:08] LABS: Basophils # (auto) 0.1 10 ^3/uL (0-0.2); Basophils % (auto) 0.7 % (0.0-2.0); Eosinophils # (auto) 0.3 10 ^3/uL (0-0.8); Eosinophils % (auto) 3.3 % (0.0-7.0); Hematocrit 40.1 % (36.0-46.0); Hemoglobin 13.2 g/dL (12.2-16.2); Lymphocytes # (auto) 3.5 10 ^3/uL (0.4-5.4); Lymphocytes % (auto) 39.6 % (10.0-50.0); Mean Corpuscular Hemoglobin 30.9 pg (28.0-32.0); Mean Corpuscular Hgb Conc. 32.8 g/dL (32.0-36.0); Monocytes # (auto) 0.9 10 ^3/uL (0-1.3); Monocytes % (auto) 9.9 % (0.0-12.0); Neutrophils # (auto) 4.1 10 ^3/uL (1.6-8.6); Neutrophils % (auto) 46.5 % (37.0-80.0); Nucleated Red Blood Cells % 0.2 %; Red Blood Cells 4.27 10^6/uL (4.0-5.20); Red Cell Distribution Width 13.5 % (11.8-14.3); White Blood Cell 8.9 10^3/uL (4.4-10.8)
[2022-12-16 09:13] LABS: Urine Bacteria NONE SEEN /hpf (None Seen); Urine Blood Negative /uL (Negative); Urine Clarity Clear (Clear); Urine Color Yellow (Yellow); Urine Hyaline Cast FEW /lpf (0 - 2); Urine Protein, UAD Negative (Negative); Urine Specific Gravity 1.019 (1.001-1.035); Urine Urobilinogen Normal (Negative); Urine WBC 1 /hpf (0 - 5); Urine pH 6.5 (5.0-8.0)
[2022-12-16 09:43] LABS: Alanine Aminotransferase 14 U/L (7-40); Albumin 4.4 g/dL (3.2-4.8); Alkaline Phosphatase 98 U/L (46-116); Anion Gap 4 (5-15); Aspartate Aminotransferase 14 U/L (13-40); BUN/Creatinine Ratio 17.5 (10.0-20.0); Blood Urea Nitrogen 18 mg/dL (9-23); Calcium 9.6 mg/dL (8.5-10.1); Carbon Dioxide 30 mmol/L (20-30); Chloride 105 mmol/L (98-107); Cholesterol 154 mg/dL (< 200); Glucose 94 mg/dL (74-106); HDL Cholesterol 43 mg/dL (40-59); LDL Cholesterol 82 mg/dL (< 100); Potassium 4.4 mmol/L (3.5-5.1); Sodium 139 mmol/L (136-145); Triglycerides 205 mg/dL (< 150)
[2022-12-16 09:44] LABS: Bilirubin, Total 0.3 mg/dL (0.2-1.0); Total Protein 7.3 g/dL (5.7-8.2)
[2022-12-16 10:36] LABS: Folate (Folic Acid) 16.94 ng/mL (>5.38)
[2022-12-16 11:57] LABS: Uric Acid 4.7 mg/dL (3.1-7.8)
== END | disposition home or self-care (01) ==
LOC: LAB 08:47
PROVIDERS: ATTEND Internal Medicine
DX: R78.89 Finding of other specified substances, not normally found in blood (principal); E78.41 Elevated Lipoprotein(a); R68.89 Other general symptoms and signs; E61.2 Magnesium deficiency; E79.0 Hyperuricemia without signs of inflammatory arthritis and tophaceous disease; E85.9 Amyloidosis, unspecified; R94.6 Abnormal results of thyroid function studies; R82.991 Hypocitraturia; R82.90 Unspecified abnormal findings in urine; R82.79 Other abnormal findings on microbiological examination of urine; D51.9 Vitamin B12 deficiency anemia, unspecified
CPT/HCPCS: 36415; 80053; 80061; 81001; 82306; 82607; 82746; 83036; 84443; 84550; 85025; 87086

== ENCOUNTER 2023-07-05 15:49 | Emergency (ER) | payer BC, OTHER ==
[~2023-07-05] VITALS: Ht 170.2 cm; Wt 57.0 kg
[~2023-07-05 15:49] MED LIST changes: -METO-517 PO; +METO10TA4 PO
[2023-07-05 15:59] VITALS: BP 148/88; PULSE 88; RESP 16; O2SAT 97
== END 2023-07-05 21:20 | disposition left against medical advice (07) ==
LOC: ER 15:49
DX: G43.909 Migraine, unspecified, not intractable, without status migrainosus (principal); Z53.21 Procedure and treatment not carried out due to patient leaving prior to being seen by health care provider

== ENCOUNTER 2023-12-02 15:07 | Emergency (ER) | payer BC ==
[~2023-12-02] VITALS: Ht 170.2 cm; Wt 52.1 kg
[2023-12-02 16:54] VITALS: BP 157/93; PULSE 100; RESP 16; O2SAT 98
== END 2023-12-03 01:21 | disposition left against medical advice (07) ==
LOC: ER 15:11
DX: M25.531 Pain in right wrist (principal); I10 Essential (primary) hypertension; Z53.21 Procedure and treatment not carried out due to patient leaving prior to being seen by health care provider

== ENCOUNTER 2023-12-04 11:09 | Inpatient (IN) | payer BC ==
[~2023-12-04] VITALS: Ht 170.2 cm; Wt 58.6 kg
[2023-12-04 11:48] LABS: Basophils # (auto) 0 10 ^3/uL (0-0.2); Basophils % (auto) 0.5 % (0.0-2.0); Eosinophils # (auto) 0.1 10 ^3/uL (0-0.8); Eosinophils % (auto) 0.9 % (0.0-7.0); Hematocrit 37.2 % (36.0-46.0); Hemoglobin 12.5 g/dL (12.2-16.2); Lymphocytes % (auto) 11.4 % (10.0-50.0); Mean Corpuscular Hemoglobin 32.6 pg (28.0-32.0); Mean Corpuscular Hgb Conc. 33.7 g/dL (32.0-36.0); Mean Corpuscular Volume 96.6 fL (80.0-100.0); Monocytes # (auto) 0.5 10 ^3/uL (0-1.3); Monocytes % (auto) 5.9 % (0.0-12.0); Neutrophils # (auto) 6.8 10 ^3/uL (1.6-8.6); Neutrophils % (auto) 81.3 % (37.0-80.0); Nucleated Red Blood Cells % 0.1 %; Platelet Count (auto) 343 10^3/uL (140-450); Red Blood Cells 3.85 10^6/uL (4.0-5.20); Red Cell Distribution Width 13.4 % (11.8-14.3); White Blood Cell 8.4 10^3/uL (4.4-10.8)
[2023-12-04 12:05] LABS: Albumin 4.2 g/dL (3.2-4.8); Alkaline Phosphatase 86 U/L (46-116); Anion Gap 7 (5-15); Aspartate Aminotransferase 14 U/L (13-40); BUN/Creatinine Ratio 12.8 (10.0-20.0); Bilirubin, Total 0.5 mg/dL (0.2-1.0); Blood Urea Nitrogen 14 mg/dL (9-23); Calcium 10.4 mg/dL (8.7-10.4); Carbon Dioxide 26 mmol/L (20-31); Chloride 104 mmol/L (98-107); Glucose 111 mg/dL (74-106); Potassium 4.3 mmol/L (3.5-5.1); Sodium 137 mmol/L (136-145); Total Protein 6.6 g/dL (5.7-8.2)
[2023-12-04 12:16] LABS: Alanine Aminotransferase < 9 U/L (7-40)
[2023-12-04 13:00] VITALS: O2SAT 97
[2023-12-04 17:25] LABS: Urine Amorphous Crystal FEW /hpf (None Seen); Urine Bacteria FEW /hpf (None Seen); Urine Blood Negative /uL (Negative); Urine Clarity Clear (Clear); Urine Color Yellow (Yellow); Urine Protein, UAD Negative (Negative); Urine Urobilinogen Normal (Negative); Urine WBC 91 /hpf (0 - 5)
[2023-12-04 19:22] VITALS: PULSE 75; RESP 17; O2SAT 98
[2023-12-04] MEDS ORDERED: ONDANSETRON HCL 4 MG/2 ML VIAL IV PRN (21:30)
[2023-12-04] MEDS ORDERED: DOCUSATE SOD 100 MG CAP PO PRN (21:30)
[2023-12-04] MEDS ORDERED: ACETAMINOPHEN 325 MG TAB PO PRN (21:30)
[2023-12-04] MEDS ORDERED: hydrALAZINE HCL 20 MG/ML VL IV PRN (21:30)
[2023-12-04] MEDS: ATORVASTATIN 20 MG TAB PO SCH (22:33)
[2023-12-04] MEDS: cefTRIAXone 1GM/50ML D5W 50 ML IV ONE (22:33)
[2023-12-04] MEDS: SODIUM CHLORIDE 0.9% 1,000 ML IV SCH (22:33)
[2023-12-04] MEDS ORDERED: MORPHINE SULFATE INJ 2 MG/ml SYRG IV PRN (23:15)
[2023-12-04] MEDS ORDERED: NITROGLYCERIN 0.4 MG SL TAB SL PRN (23:15)
[2023-12-05] VITALS (7 sets, daily range): BP systolic 108–139; BP diastolic 56–85; PULSE 60–69; RESP 17–20; TEMP 97.7–98.7; O2SAT 95–98
[2023-12-05] MEDS: HYDROcodone-ACET 5/325MG TAB PO PRN (03:28)
[2023-12-05 05:55] LABS: Basophils # (auto) 0 10 ^3/uL (0-0.2); Basophils % (auto) 0.4 % (0.0-2.0); Eosinophils # (auto) 0.2 10 ^3/uL (0-0.8); Eosinophils % (auto) 2.6 % (0.0-7.0); Hematocrit 35.8 % (36.0-46.0); Hemoglobin 12.2 g/dL (12.2-16.2); Mean Corpuscular Hemoglobin 33.1 pg (28.0-32.0); Mean Corpuscular Hgb Conc. 34.1 g/dL (32.0-36.0); Mean Corpuscular Volume 97.3 fL (80.0-100.0); Monocytes # (auto) 0.9 10 ^3/uL (0-1.3); Monocytes % (auto) 12.4 % (0.0-12.0); Neutrophils # (auto) 4.3 10 ^3/uL (1.6-8.6); Neutrophils % (auto) 57.6 % (37.0-80.0); Nucleated Red Blood Cells % 0.1 %; Platelet Count (auto) 289 10^3/uL (140-450); Red Blood Cells 3.68 10^6/uL (4.0-5.20); Red Cell Distribution Width 13.2 % (11.8-14.3); White Blood Cell 7.5 10^3/uL (4.4-10.8)
[2023-12-05 06:22] LABS: Alanine Aminotransferase 14 U/L (7-40); Alkaline Phosphatase 76 U/L (46-116); Anion Gap 8 (5-15); BUN/Creatinine Ratio 11.6 (10.0-20.0); Blood Urea Nitrogen 11 mg/dL (9-23); Calcium 9.8 mg/dL (8.7-10.4); Carbon Dioxide 23 mmol/L (20-31); Chloride 109 mmol/L (98-107); Glucose 87 mg/dL (74-106); Potassium 3.9 mmol/L (3.5-5.1); Sodium 140 mmol/L (136-145)
[2023-12-05 06:23] LABS: Albumin 3.9 g/dL (3.2-4.8); Aspartate Aminotransferase 15 U/L (13-40); Bilirubin, Total 0.3 mg/dL (0.2-1.0); Total Protein 6.3 g/dL (5.7-8.2)
[2023-12-05] MEDS: PANTOPRAZOLE 40 MG/10 ML VIAL INJ IV SCH (09:59)
[2023-12-05] MEDS: CARBIDOPA W LEVODOPA 25/100mg TABLET PO SCH (15:46)
[2023-12-05] MEDS ORDERED: cefTRIAXone 1GM/50ML D5W 50 ML IV SCH (21:00)
[2023-12-06] VITALS (9 sets, daily range): BP systolic 115–152; BP diastolic 64–82; PULSE 54–78; RESP 14–20; TEMP 97.7–98.6; O2SAT 96–99
[2023-12-06 06:42] LABS: Chloride 111 mmol/L (98-107); Potassium 3.7 mmol/L (3.5-5.1); Sodium 142 mmol/L (136-145)
[2023-12-06 06:43] LABS: Anion Gap 7 (5-15); Carbon Dioxide 24 mmol/L (20-31)
[2023-12-06 06:44] LABS: Calcium 9.2 mg/dL (8.7-10.4)
[2023-12-06 06:47] LABS: Basophils # (auto) 0.1 10 ^3/uL (0-0.2); Basophils % (auto) 0.9 % (0.0-2.0); Eosinophils # (auto) 0.3 10 ^3/uL (0-0.8); Eosinophils % (auto) 3.9 % (0.0-7.0); Hematocrit 34.4 % (36.0-46.0); Hemoglobin 11.7 g/dL (12.2-16.2); Lymphocytes % (auto) 42.7 % (10.0-50.0); Mean Corpuscular Hemoglobin 33.4 pg (28.0-32.0); Mean Corpuscular Hgb Conc. 34.2 g/dL (32.0-36.0); Mean Corpuscular Volume 97.8 fL (80.0-100.0); Monocytes # (auto) 0.8 10 ^3/uL (0-1.3); Monocytes % (auto) 10.9 % (0.0-12.0); Neutrophils # (auto) 2.9 10 ^3/uL (1.6-8.6); Neutrophils % (auto) 41.6 % (37.0-80.0); Nucleated Red Blood Cells % 0.1 %; Platelet Count (auto) 276 10^3/uL (140-450); Red Blood Cells 3.51 10^6/uL (4.0-5.20); Red Cell Distribution Width 13.3 % (11.8-14.3); White Blood Cell 6.9 10^3/uL (4.4-10.8)
[2023-12-06 06:49] LABS: BUN/Creatinine Ratio 13.3 (10.0-20.0); Blood Urea Nitrogen 12 mg/dL (9-23); Glucose 88 mg/dL (74-106)
[2023-12-06] MEDS: PANTOPRAZOLE 40 MG/10 ML VIAL INJ IV SCH (08:19)
[2023-12-06] MEDS: cefTRIAXone 2GM/50ML D5W 50 ML IV SCH (08:20)
[2023-12-06] MEDS: ENOXAPARIN SOD 40 MG/0.4 ML SYRINGE SC SCH (08:20)
[2023-12-06] MEDS ORDERED: CEFD300C2 PO (15:57)
[2023-12-07 01:00] VITALS: BP_SYST 136; BP_SYST 152; BP_SYST 154; BP_DIAS 88; BP_DIAS 89; BP_DIAS 90; PULSE 73; PULSE 79; PULSE 83; RESP 19; TEMP 98.1; O2SAT 97
[2023-12-07 05:00] VITALS: BP 151/84; PULSE 63; RESP 17; TEMP 98.4; O2SAT 96
[2023-12-07 08:00] VITALS: PULSE 62
[2023-12-07 08:50] VITALS: BP 156/80; PULSE 61; RESP 20; TEMP 98.1; O2SAT 97
[2023-12-07 12:39] VITALS: BP 147/87; PULSE 97; RESP 18; TEMP 98.2; O2SAT 98
== END 2023-12-07 15:56 | disposition home health service (06) | DRG 74 ==
LOC: EDBD 11:09 → ER 11:09 → TELE 23:08 → TELE-WESTW 12-05 02:25
PROVIDERS: ADMIT Internal Medicine; ATTEND Internal Medicine
DX: G90.89 Other disorders of autonomic nervous system (principal); N30.00 Acute cystitis without hematuria; E78.5 Hyperlipidemia, unspecified; S09.8XXA Other specified injuries of head, initial encounter; I10 Essential (primary) hypertension; G20.B2 Parkinson's disease with dyskinesia, with fluctuations; I95.1 Orthostatic hypotension; K57.90 Diverticulosis of intestine, part unspecified, without perforation or abscess without bleeding; G43.909 Migraine, unspecified, not intractable, without status migrainosus; F32.9 Major depressive disorder, single episode, unspecified; Z90.49 Acquired absence of other specified parts of digestive tract; Z87.11 Personal history of peptic ulcer disease; Z87.442 Personal history of urinary calculi; Z83.3 Family history of diabetes mellitus; Z82.49 Family history of ischemic heart disease and other diseases of the circulatory system; Z82.0 Family history of epilepsy and other diseases of the nervous system; W18.39XA Other fall on same level, initial encounter; Y93.89 Activity, other specified; Y92.89 Other specified places as the place of occurrence of the external cause; Y99.8 Other external cause status
CPT/HCPCS: 36415; 70450; 71045; 80048; 80053; 81001; 82306; 82607; 83036; 84443; 84484; 85025; 87086; 93005; 93306; 93886; 96365; 96375; 97110; 97116; 97163; 97530; G0378; J2470